=== PATIENT | female | born 1990 | race Caucasian/White ===

== ENCOUNTER → 2018-01-14 | Day surgery (SDC) | payer OTHER ==
[~2018-01-14] VITALS: Ht 157.5 cm; Wt 51.3 kg
[~2018-01-14] MED LIST: COMPLETE NATAL1 EACH
== END | disposition home or self-care (01) ==
LOC: ER 13:51 → EDBD 20:20 → CIR.AMB 20:20
DX: O03.4 Incomplete spontaneous abortion without complication (principal)

== ENCOUNTER 2019-04-10 12:51 | Outpatient (CLI) | payer OTHER | END 2019-04-10 14:00 | disposition home or self-care (01) | LOC: PRENATAL 12:51 | DX: O21.1 Hyperemesis gravidarum with metabolic disturbance (principal); O30.001 Twin pregnancy, unspecified number of placenta and unspecified number of amniotic sacs, first trimester; O99.89 Other specified diseases and conditions complicating pregnancy, childbirth and the puerperium ==

== ENCOUNTER → 2019-05-09 | Outpatient (CLI) | payer OTHER | END | disposition home or self-care (01) | LOC: PRENATAL 14:00 | DX: O28.3 Abnormal ultrasonic finding on antenatal screening of mother (principal); O09.522 Supervision of elderly multigravida, second trimester; O30.90 Multiple gestation, unspecified, unspecified trimester ==

== ENCOUNTER → 2019-06-21 | Outpatient (CLI) | payer OTHER | END | disposition home or self-care (01) | LOC: PRENATAL 13:00 | DX: O28.3 Abnormal ultrasonic finding on antenatal screening of mother (principal); O30.92 Multiple gestation, unspecified, second trimester; O09.92 Supervision of high risk pregnancy, unspecified, second trimester; O35.3XX0 Maternal care for (suspected) damage to fetus from viral disease in mother, not applicable or unspecified; O26.872 Cervical shortening, second trimester; O99.89 Other specified diseases and conditions complicating pregnancy, childbirth and the puerperium; O26.852 Spotting complicating pregnancy, second trimester ==

== ENCOUNTER 2019-07-17 14:11 | Outpatient (CLI) | payer OTHER | END 2019-07-18 10:52 | disposition home or self-care (01) | LOC: OBS/DEL 14:11 | DX: O26.842 Uterine size-date discrepancy, second trimester (principal); O26.892 Other specified pregnancy related conditions, second trimester; O60.02 Preterm labor without delivery, second trimester; O30.032 Twin pregnancy, monochorionic/diamniotic, second trimester ==

== ENCOUNTER 2019-09-15 15:43 | Inpatient (IN) | payer OTHER ==
[~2019-09-15] VITALS: Ht 157.5 cm; Wt 1.8 kg
== END 2019-09-21 15:04 | disposition home or self-care (01) | DRG 785 ==
LOC: LDR 15:43 → OB/GYN 15:43
PROVIDERS: ADMIT Obstetrics & Gynecology
PROC: 4A1HXCZ Monitoring of Products of Conception, Cardiac Rate, External Approach (ICD-10-PCS; 2019-09-15)
PROC: 0UL70ZZ Occlusion of Bilateral Fallopian Tubes, Open Approach (ICD-10-PCS; 2019-09-18)
PROC: 10D00Z1 Extraction of Products of Conception, Low, Open Approach (ICD-10-PCS; principal; 2019-09-18 13:00)
DX: O82 Encounter for cesarean delivery without indication (principal); O32.1XX1 Maternal care for breech presentation, fetus 1; O30.043 Twin pregnancy, dichorionic/diamniotic, third trimester; Z3A.35 35 weeks gestation of pregnancy; Z37.2 Twins, both liveborn; Z30.2 Encounter for sterilization; Z22.330 Carrier of Group B streptococcus